=== PATIENT | female | born 1970 | race Caucasian/White ===

== ENCOUNTER → 2017-08-21 13:32 | Outpatient (CLI) | payer MEDICARE, SELFPAY ==
[2017-08-21 15:53] LABS: International Normalized Ratio 1.7; Prothrombin Time (Protime)PT. 18.9 SECONDS (11.7-14.9)
== END ==
PROVIDERS: Family Provider Internal Medicine; PCP Internal Medicine; Visit Provider Internal Medicine
DX: I82.409 Acute embolism and thrombosis of unspecified deep veins of unspecified lower extremity (principal)
CPT/HCPCS: 36415; 85610

== ENCOUNTER 2018-02-11 00:02 | Observation (INO) | payer MEDICARE, SELFPAY ==
[2018-02-11] VITALS (12 sets, daily range): BP systolic 106–139; BP diastolic 54–73; PULSE 71–96; RESP 16–18; TEMP 36.1–37.3; O2SAT 92–100; BMI 30.6; BMI 30.2; BMI 30.3
--- NOTE | 2018-02-11 00:41 | CT_ITS ---
STUDY: CT ABDOMEN AND PELVIS WITHOUT CONTRAST REASON FOR EXAM: Female, 47 years old. Upper abdominal pain. RADIATION DOSAGE (If Supplied By Facility): CTDIvol = ( 9.45 ) mGy, DLP = ( 474.72 ) mGycm TECHNIQUE: Transaxial images were obtained from the dome of the diaphragm to the symphysis pubis without oral contrast, and without intravenous contrast. Sagittal and coronal images were reconstructed. Individualized dose optimization techniques were used for this CT. COMPARISON: 03/22/2008. FINDINGS: The visualized lung bases are unremarkable. The visualized portions of the heart are within normal limits. There is mild diffuse fatty infiltration of the liver. Normal gallbladder and extrahepatic biliary system. Normal spleen. Normal pancreas. Normal bilateral adrenal glands. Normal right kidney. Normal left kidney. Normal visualized stomach. Normal small intestine. Normal colon. There is a tubular, thick-walled appendix (>7mm), consistent with acute appendicitis. There is mild periappendiceal stranding. There is mild atherosclerotic calcification of the abdominal aorta with elongation and tortuosity, but without a demonstrated aneurysm. Normal inferior vena cava. Normal retroperitoneum. Normal urinary bladder. There is absence of the uterus consistent with a prior hysterectomy. There is a very small umbilical hernia containing fat. There is straightening of the lumbar spine. There is minimal retrolisthesis of L2 over L3. CT/Abdomen/Pelvis without Cont IMPRESSION: Thickening of the appendix with mild periappendiceal stranding suggestive of acute appendicitis. N.B. : The above information has been verbally conveyed by José Martin MD to Dr. Marcella Rolle on 02/11/2018 01:40:39 (ET). Electronically Signed: José Martin MD at 1:36 EDT Tel , Service support , N.B. : The above information has been verbally conveyed by José Martin MD to Dr. Marcella Rolle on 02/11/2018 01:40:39 (ET).
--- NOTE | 2018-02-11 00:41 | EKG12_ITS ---
Test Reason : ABD PAIN Blood Pressure : / mmHG Vent. Rate : 073 BPM Atrial Rate : 073 BPM P-R Int : 164 ms QRS Dur : 088 ms QT Int : 386 ms P-R-T Axes : 051 018 024 degrees QTc Int : 425 ms Normal sinus rhythm Normal ECG Confirmed by FANTASMA CLARK, BAUTISTA ([id number]), video editor PHUONG DIANA ([id number] on 02/13/2018 4:29:11 PM Referred By: LANG Confirmed By:BAUTISTA MEEK MD
--- NOTE | 2018-02-11 00:42 | ED.VISSUMM ---
- ER Visit Summary Date of Service: 02/11/18 Chief Complaint: [Abdominal pain] History of Present Illness: The patient is a 47 F [who presents the emergency department with abdominal pain. It started 1 hour after dinner tonight. She had a veggie burger fried potatoes and cookies. She has some nausea but no vomiting. Bowel movements have been normal. Urination has been normal. It started out as a feeling of fullness in the epigastric area and radiates to the right side. She has a history of laparoscopies and complete hysterectomy. She still has her appendix and her gallbladder. No fevers or chills. She has never had similar pain in the past she is diabetic] Physical Examination: [] WN WD NAD PERRL EOMI MMM NECK supple and nontender, no masses RRR no murmur rub or gallop, no peripheral edema, symmetric radial pulses CTAB no respiratory distress ABDOMEN is soft negative Porras sign positive tenderness over McBurney's point with negative so as Rovsing sign, normal bowel sounds, no distension, no rebound or guarding SKIN is warm and dry no rashes Alert and Oriented x3, CN II-XII in tact, no motor or sensory deficits, gait normal No lymphadenopathy Test Results: [] Emergency Department Course and Treatment: [Patient denied wanting anything for pain. Screening labs were obtained and showed a leukocytosis at 15.4. She had 5-10 white blood cells in her urine. CT of the abdomen and pelvis was consistent with acute appendicitis. I spoke with Dr. Hess. She was given Cipro and Flagyl for antibiotics in the emergency department. He will begin to do surgery at 430.] Treatment Plan: [] Disposition: [Operating room] Impression: [aCute appendicitis] This note was generated with [employer] dictation software. It may contain incorrect words, spelling, and punctuation that were not noted in review of the chart prior to signing ED Disposition - Plan for ED Patient: Chief Complaint: Abd Pain Referrals: Charo Rutledge MD [Primary Care Provider] -
[2018-02-11 00:49] LABS: Mucous, Urine 0 SEEN /hpf (<or=2+); Red Blood Cells-Urine 0 SEEN /hpf (0-5)
[2018-02-11] MEDS: Ondansetron 4 MG/2 ML Vial IV ×2 (00:49→09:37)
[2018-02-11 00:53] LABS: Absolute Lymphocyte Count 4.25 X10^3/ul (0.83-4.51); Absolute Neutrophil Count 9.9 X10^3/uL (2.0-7.7); Basophil# 0.04 X10^3/uL; Basophil% 0.3 % (0-1); Eosinophil# 0.29 X10^3/uL; Eosinophils% 1.9 % (0-5); Hematocrit 35.6 % (37-47); Hemoglobin 12.2 g/dl (12.0-15.0); Lymphocyte # 4.25 X10^3/ul (4.0); Lymphocyte % 27.7 % (19-41); Mean Corp Hgb Conc 34.3 g/gl (32-36); Mean Corpuscular Hgb 31.4 pg (27.0-32.0); Mean Corpuscular Volume 91.5 fL (81-99); Mean Platelet Vol. 10.2 fl (6.2-12.0); Monocyte# 0.84 X10^3/uL; Monocyte% 5.5 % (0-10); Neutrophil # 9.89 X10^3/uL (2.7-7.7); Neutrophil % 64.3 % (47-70); Platelet Count 388 K/mm3 (150-450); RBC Distribution Width CV 12.1 % (11.6-14.6); RBC Distribution Width SD 39.6 fl (35.1-43.9); Red Blood Count 3.89 M/mm3 (4.2-5.4); White Blood Count 15.4 K/mm3 (4.4-11.0)
[2018-02-11 00:55] LABS: POSITIVE COUNT NO; POSITIVE DIFFERENTIAL NO; POSITIVE MORPHOLOGY NO
[2018-02-11 01:17] LABS: AST(SGOT) 29 U/L (15-37); Alanine Aminotransfer ALT/SGPT 30 U/L (13-56); Albumin, Serum 3.8 g/dL (3.2-5.0); Alkaline Phosphatase 91 U/L (45-117); Anion Gap 8 (5-15); BUN 9 mg/dL (7-18); BUN/Creat Ratio 13.6 RATIO (10-20); Calcium,Total 9.1 mg/dL (8.5-10.1); Chloride 104 mmol/L (98-107); Creatinine, Serum 0.66 mg/dL (0.55-1.02); EST Glomerular Filtration Rate 101 mL/min (>60); Est Glom Filt Rate - Afr Amer 123 mL/min (>60); Globulin 3.9 g/dL (2.2-4.2); Glucose 141 mg/dL (74-106); Lipase 239 U/L (73-393); Potassium 4.1 mmol/L (3.5-5.1); Protein, Total 7.7 g/dL (6.4-8.2); Sodium Level 140 mmol/L (136-145)
[2018-02-11 01:20] LABS: Color, Urine Yellow (Yellow); Glucose, Dipstick Normal (Normal); Ketone-Dipstick Negative (Negative); Leukocyte Esterase-Dipstick 500 /ul (Negative); Nitrite-Dipstick Negative (Negative); Occult Blood-Urine Negative /ul (Negative); Protein-Dipstick Negative (Negative); Urine Bilirubin Dipstick Negative (Negative); Urine Clarity Clear (Clear); Urine Urobilinogen Normal (Normal)
[2018-02-11 01:31] LABS: Bacteria RARE /hpf (None Seen); Squamous Epithelial Cells - UA 0-5 SEEN /hpf (5-10); White Blood Cells 5-10 SEEN /hpf (0-5)
[2018-02-11] MEDS: Ciprofloxacin 400 MG/200 ML BAG 200 MG IV ×3 (02:25→21:02)
--- NOTE | 2018-02-11 04:46 | HP.PCM_ITS ---
Problem List (1) Diabetes Status: Acute (2) DVT (deep venous thrombosis) Status: Acute History of Present Illness Date of Admission: 02/11/18 The patient is a 47 year old F with epigastric and RLQ pain that began at 7pm last night. SHe noted nausea but no vomiting. She presented to the [facility] ER. She was found to have an elevated WBC count of 15K. CT scan was interpreted as early appendicitis She had a LLE DVT below the knee in June. She stopped her coumadin 2 weeks prior. Past Medical History Allergies aspirin Allergy (Verified 02/11/18 00:11) Hives guaifenesin [From Entex LA] Allergy (Verified 02/11/18 00:11) Other minocycline Allergy (Verified 02/11/18 00:11) Hives Penicillins Allergy (Verified 02/11/18 00:11) Hives phenylephrine [From Entex LA] Allergy (Verified 02/11/18 00:11) Other phenylpropanolamine [From Entex LA] Allergy (Verified 02/11/18 00:11) Other sulfamethoxazole [From Bactrim] Allergy (Verified 02/11/18 00:11) Hives trimethoprim [From Bactrim] Allergy (Verified 02/11/18 00:11) Hives IV DYE Allergy (Uncoded 02/11/18 00:11) Anaphylaxis Home Medications: Ambulatory Orders Medication Instructions Recorded Atenolol [Tenormin] 25 mg PO DAILY 02/11/18 Carbamazepine 200 mg PO DAILY 02/11/18 Carbamazepine 400 mg PO QHS 02/11/18 Insulin NPH Human Isophane 22 unit SQ DAILY 02/11/18 [Novolin N] Insulin Regular, Human [Novolin R] 12 unit SC TID 02/11/18 Lisinopril [Zestril] 2.5 mg PO DAILY 02/11/18 Pantoprazole Sodium [Protonix] 40 mg PO DAILY 02/11/18 Rosuvastatin Calcium [Crestor] 20 mg PO DAILY 02/11/18 Sertraline HCl [Zoloft] 100 mg PO DAILY 02/11/18 Surgical History: hysterectomy, - - bilateral oopherectomy Smoking Status: Former smoker Review of Systems Constitutional: Reports: Anorexia. Denies: Chills, Fever, Weight Change HEENT: Denies: Head Aches, Sinus Congestion, Sinus Drainage Cardiovascular: Denies: Chest Pain, Palpitations Respiratory: Denies: Cough, Shortness of breath at rest, Sputum production Gastrointestinal: Reports: Abdominal Pain, Nausea. Denies: Vomiting Genitourinary: Denies: Dysuria Musculoskeletal: Denies: Joint Pain, Joint Tenderness Skin: Denies: Rash, Wounds Neurological: Denies: Numbness, Tingling, Focal weakness Psychiatric: Denies: Anxiety, Depression, Homicidal Ideations, Suicidal Ideations Hematologic/ Lymphatic: Reports: Hx of blood clot - left leg. Denies: Easy Bruising, Easy Bleeding VTE Information - Inpt Only VTE Present on Admission: Yes - prior left dvt VTE Mechan Device Prophylaxis: SCD's - right leg only Patient Problems: Active and Suspected Problems Diabetes (Acute) DVT (deep venous thrombosis) (Acute) - Physical Exam General: Alert, Oriented x3, Cooperative HEENT: Atraumatic, PERRLA, EOMI, Normocephalic Neck: Supple, No JVD, Negative Carotid Bruits Lungs: Clear to auscultation, Normal air movement Cardiovascular: Regular rate, No murmurs Abdomen: Bowel Sounds Present, Soft, Tender - RLQ Extremities: No edema, Capillary Refill Less than 3 Seconds Skin: No rashes, No breakdown Musculoskeletal: No Tenderness to Palpation of Joints or Extremities Neurological: Cranial nerves II-XII grossly intact Psych/Mental Status: Normal Affect, Appropriate Vital Signs Temp Pulse Resp BP Pulse Ox 98.0 F 71 16 139/73 H 94 02/11/18 02:32 02/11/18 02:32 02/11/18 02:32 02/11/18 02:32 02/11/18 02:32 Oxygen Delivery Method Room Air Weight: 83.5 kg Body Mass Index (BMI) 30.6 Laboratory Tests Past 24 Hrs 02/11/18 02/11/18 02/11/18 00:30 00:30 00:30 WBC 15.4 H RBC 3.89 L Hgb 12.2 Hct 35.6 L MCV 91.5 MCH 31.4 MCHC 34.3 RDW 12.1 RDW Differential 39.6 Plt Count 388 MPV 10.2 Immature Gran % (Auto) 0.300 Neut % (Auto) 64.3 Lymph % (Auto) 27.7 [place] % (Auto) 5.5 Eos % (Auto) 1.9 Baso % (Auto) 0.3 Absolute Neuts (auto) 9.9 H Absolute Lymphs (auto) 4.25 Total Counted Not Reportable Sodium 140 Potassium 4.1 Chloride 104 Carbon Dioxide 28.0 Anion Gap 8 BUN 9 Creatinine 0.66 Estim Creat Clear Calc 93.80 Est GFR (MDRD) Af Amer 123 Est GFR (MDRD) Non-Af 101 BUN/Creatinine Ratio 13.6 Glucose 141 H Calcium 9.1 Total Bilirubin 0.20 AST 29 ALT 30 Alkaline Phosphatase 91 Total Protein 7.7 Albumin 3.8 Globulin 3.9 Albumin/Globulin Ratio 1.0 Lipase 239 Urine Color Yellow Urine Clarity Clear Urine pH 5.0 Ur Specific [place] 1.010 Urine Protein Negative Urine Glucose (UA) Normal Urine Ketones Negative Urine Occult Blood Negative Urine Nitrite Negative Urine Bilirubin Negative Urine Urobilinogen Normal Ur Leukocyte Esterase 500 H Urine RBC 0 SEEN Urine WBC 5-10 SEEN Ur Squamous Epith Cells 0-5 SEEN Urine Bacteria RARE Urine Mucus 0 SEEN Assessment/Plan All Active Problems Diabetes (Acute) DVT (deep venous thrombosis) (Acute) appendicitis I plan to perform a laparoscopic appendectomy. The patient understands the risks, benefits and possible complications and consents to the procedure. SHe has a penicillin allergy. SHe was given cipro and flagyl. SHe had a history of a LLE DVT. She stopped her coumadin [address] We will place a right LE SCD.
--- NOTE | 2018-02-11 05:00 | APP_PTH ---
PATIENT: AGUILAR FERGUSON LOC: MS3 U#:[id number] AGE/SX: 47/F ROOM: MS313 RE02/12/[address]: Dr. Reed Caban MD : 1970 BED: 1 DIS: 02/13/2018 SPEC #: [id number] RECD: 02/11/18 07:15 STATUS: NATALIA REQ #: [id number] JANINA: 02/11/18 05:[address]: Reed Caban DEPT: SURGICAL PATHOLOGY RECD BY: Efrem Churchill ENTERED: 02/11/18 11:00 SP TYPE: APPENDIX OTHR DR: Dr. Charo Rutledge MD Tissues: Appendix, NOS Procedures: Surgery Specimen Level III HEADER OPERATION: Laparoscopic, appendectomy PRE-OP DIAGNOSIS: Acute appendicitis TISSUE SUBMITTED: Appendix MICROSCOPIC DIAGNOSIS Appendix: Acute appendicitis with focal area of rupture and periappendicitis. SJ:jojo 6/27/18 MICROSCOPIC DESCRIPTION Slides are reviewed. GROSS DESCRIPTION Received in fixative is one container labeled with the patient's name and designated appendix. The specimen consists of appendix measuring 5 cm in length and up to 0.8 cm in diameter. The attached periappendiceal adipose tissue measures up to 2.5 cm in thickness. The serosa is congested and focally covered with bradshaw purulent exudate. Focal area is suspicious for perforation noted in the middle portion. Lumen does not contain any fecalith. Broomcorn Thresher sections are submitted in 1 cassette. JOSE ANTONIO:jojo 02/10/18 TC:2 CPT: 76083
[2018-02-11] MEDS: Bupivacaine Mpf 0.5% 30 ML VIAL (06:02)
--- NOTE | 2018-02-11 06:06 | OP.PCM_ITS ---
Problem List (1) Diabetes Status: Acute (2) DVT (deep venous thrombosis) Status: Acute Report of Operation Date of Procedure: 02/11/18 Pre-Operative Diagnosis: acute appendicitis Post-Operative Diagnosis: acute appendicitis Surgery/Procedure Performed:: laparoscopic appendectomy three knife trimmer: None Type of Anesthesia:: General Anesthesiologist: Lars Obando - ASA2E Specimen's removed: appendix Estimated Blood Loss (mL): minimal Fluids Replaced: 1000 Description of Procedure: The patient was brought to the operating suite. Sign in was performed verifying patient, site, procedure, position, and DVT prophylaxis with SCDs. Patient received Cipro 400 mg and Bactrim 500 mg due to a penicillin allergy for presumed appendicitis. Following induction of general anesthetic. The patient?s abdomen was prepped and draped in the usual fashion. Timeout was performed verifying patient, site , position. Local anesthetic was injected below the umbilicus. Incision made and dissection carried down to the umbilical root fascia. 2 stay sutures were placed. Incision made in the fascia, the peritoneum entered under direct visualization. A 10 mm Bowser trocar was inserted and secured with the stay sutures. Pneumoperitoneum to 15 mmHg was insufflated. 2 5mm ports were placed in the standard position. Visual inspection revealed early acute appendicitis without significant intra- abdominal inflammation or pelvic fluid. A window was made between the base the mesoappendix and the base of the appendix transected with the intestinal load Endo RIKC stapler at the base of the cecum. The mesoappendix was transected with a harmonic scalpel. The appendix was placed in an Endobag and removed through the umbilical port site. An 0 PDS [id number] suture was placed around the umbilical port site defect. Pneumoperitoneum was reestablished. The appendiceal area was checked for hemostasis. 5mm ports were removed under direct visualization with no signs of bleeding. Pneumoperitoneum was released. The Bowser trocar was removed. The umbilical fascial suture was secured area did skin was closed with interrupted 4-0 Monocryl subcuticular sutures. Steri-Strips and bandages were applied. The patient was brought to recovery room in stable condition. - Admit VTE Documentation VTE Present on Admission: Yes - LLE VTE Mechan Device Prophylaxis: SCD's VTE Pharm Prophylaxis ordered?: Yes
[2018-02-11 06:41] LABS: Bedside Glucose 186 mg/dL (70-110)
[2018-02-11] MEDS: Lactated Ringers 1,000 ML 100 ML IV ×2 (07:15→21:01)
[2018-02-11] MEDS: Insulin Lispro 100 UNIT/ML INSULN.PEN SC ×2 (09:25→16:27)
[2018-02-11 10:51] LABS: Bedside Glucose 182 mg/dL (70-110)
[2018-02-11] MEDS: Enoxaparin 40 MG/0.4 ML Syringe SC (12:25)
[2018-02-11] MEDS: Atenolol 25 MG Tablet PO (13:22)
[2018-02-11] MEDS: Lisinopril 2.5 MG Tablet PO (13:22)
[2018-02-11] MEDS: carBAMazepine 200 MG Tablet PO (13:22)
[2018-02-11] MEDS: Pantoprazole Sodium 40 MG Tablet PO ×2 (13:23)
[2018-02-11] MEDS: Sertraline 100 MG Tablet PO (13:23)
[2018-02-11 13:51] LABS: Bedside Glucose 142 mg/dL (70-110)
[2018-02-11 16:36] LABS: Bedside Glucose 161 mg/dL (70-110)
--- NOTE | 2018-02-11 16:37 | NURSING ---
Addendum entered by Justa Arcos 02/11/18 16:39: have encouraged pt multiple times this shift to sit up in recliner and to ambulate in room and hallway, but pt has refused due to pain, nausea, etc. informed patient that she will need to sit up in recliner for supper and to ambulate in hallway before 1800. pt verbalized understanding. pt aware of risks of remaining sedentary including pneumonia, ileus, and blood clots. Original Note: SPO2 drops to 88% on room air when pt resting. 2L placed.
[2018-02-11] MEDS: oxyCODONE 5 MG Tablet PO ×2 (17:15→22:27)
[2018-02-11] MEDS: carBAMazepine 200 MG Tablet 400 MG PO (22:27)
[2018-02-11] MEDS: Atorvastatin Calcium 10 MG Tablet PO (22:27)
[2018-02-11 22:36] LABS: Bedside Glucose 154 mg/dL (70-110)
[2018-02-12] MEDS: oxyCODONE 5 MG Tablet PO ×3 (02:27→11:14)
[2018-02-12 02:32] VITALS: BP 131/72; PULSE 84; RESP 16; TEMP 36.9; O2SAT 99
[2018-02-12] MEDS: Insulin Lispro 100 UNIT/ML INSULN.PEN SC ×3 (06:38→17:06)
[2018-02-12 06:46] LABS: Bedside Glucose 167 mg/dL (70-110)
[2018-02-12 07:03] LABS: Absolute Lymphocyte Count 2.56 X10^3/ul (0.83-4.51); Absolute Neutrophil Count 5.2 X10^3/uL (2.0-7.7); Basophil# 0.03 X10^3/uL; Basophil% 0.4 % (0-1); Eosinophil# 0.14 X10^3/uL; Eosinophils% 1.7 % (0-5); Hematocrit 33.2 % (37-47); Hemoglobin 10.8 g/dl (12.0-15.0); Lymphocyte # 2.56 X10^3/ul (4.0); Lymphocyte % 30.4 % (19-41); Mean Corp Hgb Conc 32.5 g/gl (32-36); Mean Corpuscular Hgb 30.6 pg (27.0-32.0); Mean Corpuscular Volume 94.1 fL (81-99); Mean Platelet Vol. 9.6 fl (6.2-12.0); Monocyte% 5.9 % (0-10); Neutrophil # 5.17 X10^3/uL (2.7-7.7); Neutrophil % 61.5 % (47-70); Platelet Count 283 K/mm3 (150-450); RBC Distribution Width CV 12.6 % (11.6-14.6); RBC Distribution Width SD 42.6 fl (35.1-43.9); Red Blood Count 3.53 M/mm3 (4.2-5.4); White Blood Count 8.4 K/mm3 (4.4-11.0)
[2018-02-12 07:04] LABS: POSITIVE COUNT NO; POSITIVE DIFFERENTIAL NO; POSITIVE MORPHOLOGY NO
[2018-02-12 07:09] VITALS: O2SAT 99
[2018-02-12 07:36] LABS: Anion Gap 8 (5-15); BUN 7 mg/dL (7-18); BUN/Creat Ratio 12.4 RATIO (10-20); Calcium,Total 8.3 mg/dL (8.5-10.1); Chloride 105 mmol/L (98-107); Creatinine, Serum 0.56 mg/dL (0.55-1.02); EST Glomerular Filtration Rate 122 mL/min (>60); Est Glom Filt Rate - Afr Amer 147 mL/min (>60); Estimated Creatinine Clearance 110.55 ml/min; Glucose 153 mg/dL (74-106); Potassium 3.6 mmol/L (3.5-5.1); Sodium Level 142 mmol/L (136-145)
[2018-02-12] MEDS: Lisinopril 2.5 MG Tablet PO (09:10)
[2018-02-12] MEDS: Sertraline 100 MG Tablet PO (09:11)
[2018-02-12] MEDS: Atenolol 25 MG Tablet PO (09:11)
[2018-02-12] MEDS: carBAMazepine 200 MG Tablet PO (09:11)
[2018-02-12] MEDS: Pantoprazole Sodium 40 MG Tablet PO (09:11)
[2018-02-12] MEDS: Ciprofloxacin 400 MG/200 ML BAG 200 MG IV ×2 (09:13→22:13)
[2018-02-12] MEDS: Enoxaparin 40 MG/0.4 ML Syringe SC (09:13)
[2018-02-12] MEDS: Lactated Ringers 1,000 ML 100 ML IV ×2 (09:13→22:13)
[2018-02-12 09:15] VITALS: BP 119/63; PULSE 80; RESP 18; TEMP 37.3; O2SAT 94
[2018-02-12] MEDS: Ondansetron 4 MG/2 ML Vial IV ×2 (09:54→21:09)
--- NOTE | 2018-02-12 11:09 | PCM.PN.SRG ---
Patient Problems: Active and Suspected Problems Diabetes (Acute) DVT (deep venous thrombosis) (Acute) Subjective: left sided abdominal pain, poor appetite - Physical Exam General: Alert, Oriented x3, Cooperative Lungs: Clear to auscultation, Normal air movement Cardiovascular: Regular rate, No murmurs Abdomen: Soft, Hypoactive Bowel Sounds, Tender - at incisions Vital Signs Temp Pulse Resp BP Pulse Ox 99.1 F 80 18 119/63 94 02/12/18 09:15 02/12/18 09:15 02/12/18 09:15 02/12/18 09:15 02/12/18 09:15 Oxygen Flow Rate (L/min) 2 Oxygen Delivery Method Room Air Weight: 82.554 kg Body Mass Index (BMI) 30.2 Intake and Output for Last 24 Hours 02/10/18 02/11/18 02/12/18 23:59 23:59 23:59 Intake Total 3170 / 3170 2060 / 2060 Output Total 700 / 700 3150 / 3150 Balance 2470 / 2470 -1090 / -1090 Laboratory Tests Past 24 Hrs 02/12/18 02/12/18 06:50 06:50 WBC 8.4 RBC 3.53 L Hgb 10.8 L Hct 33.2 L MCV 94.1 MCH 30.6 MCHC 32.5 RDW 12.6 RDW Differential 42.6 Plt Count 283 MPV 9.6 Immature Gran % (Auto) 0.100 Neut % (Auto) 61.5 Lymph % (Auto) 30.4 [place] % (Auto) 5.9 Eos % (Auto) 1.7 Baso % (Auto) 0.4 Absolute Neuts (auto) 5.2 Absolute Lymphs (auto) 2.56 Total Counted Not Reportable Sodium 142 Potassium 3.6 Chloride 105 Carbon Dioxide 29.0 Anion Gap 8 BUN 7 Creatinine 0.56 Estim Creat Clear Calc 110.55 Est GFR (MDRD) Af Amer 147 Est GFR (MDRD) Non-Af 122 BUN/Creatinine Ratio 12.4 Glucose 153 H Calcium 8.3 L POC Glucose 02/12/18 02/11/18 02/11/18 06:37 22:27 16:23 POC Glucose 167 H 154 H 161 H 02/11/18 12:30 POC Glucose 142 H Medical Necessity - Tobacco Use Smoking Status: Former smoker Assessment/Plan All Active Problems Diabetes (Acute) DVT (deep venous thrombosis) (Acute) POD # 1 s/p laparoscopic appendectomy for early appendicitis. SHe notes poor appetite, LLQ pain and feels she will not be able to take care of herself at home today. She has a penicillin allergy. SHe was given cipro and flagyl. SHe had a history of a LLE DVT. She stopped her coumadin 2 [address] We will place a right LE SCD and lovenox
[2018-02-12 11:31] LABS: Bedside Glucose 203 mg/dL (70-110)
[2018-02-12 14:00] VITALS: BP 111/58; PULSE 77; RESP 16; TEMP 36.9; O2SAT 93
[2018-02-12] MEDS: proCHLORPERazine 10 MG/2 ML Vial 5 MG IV (14:35)
[2018-02-12] MEDS: Acetaminophen 500 MG Tablet 1000 MG PO (14:35)
[2018-02-12 17:10] LABS: Bedside Glucose 178 mg/dL (70-110)
[2018-02-12 19:47] VITALS: BP 113/57; PULSE 80; RESP 16; TEMP 37; O2SAT 96
[2018-02-12] MEDS: carBAMazepine 200 MG Tablet 400 MG PO (21:04)
[2018-02-12] MEDS: Atorvastatin Calcium 10 MG Tablet PO (21:04)
[2018-02-12] MEDS: 0.9% NaCl Peripheral Flush Adult/Peds IV (21:09)
[2018-02-12 21:21] LABS: Bedside Glucose 147 mg/dL (70-110)
[2018-02-13 01:55] VITALS: BP 125/61; PULSE 79; RESP 16; TEMP 36.8; O2SAT 94
--- NOTE | 2018-02-13 06:42 | DCINST_ITS ---
Discharge Diet: Light diet - advance as tolerated Discharge Activity: May Not Drive - for 3-5 days or while taking narcotic pain meds. May shower in (days): 1 Suture Line Care: Avoid Pulling/Pushing, Avoid Pinching/Bending Additional Dressing/Incision Instructions:: Keep dressing clean and dry. Change or remove dressing in 2 days. Leave steri strips for 1 week. May protect with a gauze bandaid. Medications to take at Discharge Atenolol [Tenormin] 25 mg PO DAILY 02/11/18 Carbamazepine 200 mg PO DAILY 02/11/18 Carbamazepine 400 mg PO QHS 02/11/18 Insulin NPH Human Isophane [Novolin N] 22 unit SQ DAILY 02/11/18 Insulin Regular, Human [Novolin R] 12 unit SC TID 02/11/18 Lisinopril [Zestril] 2.5 mg PO DAILY 02/11/18 Pantoprazole Sodium [Protonix] 40 mg PO DAILY 02/11/18 Rosuvastatin Calcium [Crestor] 20 mg PO DAILY 02/11/18 Sertraline HCl [Zoloft] 100 mg PO DAILY 02/11/18 Enoxaparin [Lovenox] 40 mg SC DAILY@1000 #5 syringe 02/13/18 Hydrocodone/Acetaminophen [[place] 5-325 Tablet] 1 ea PO 4X/DAY PRN PRN 7 Days # 10 tab 02/13/18 Allergies/Adverse Reactions: Allergies aspirin Allergy (Verified 02/11/18 00:11) Hives guaifenesin [From Entex LA] Allergy (Verified 02/11/18 00:11) Other minocycline Allergy (Verified 02/11/18 00:11) Hives Penicillins Allergy (Verified 02/11/18 00:11) Hives phenylephrine [From Entex LA] Allergy (Verified 02/11/18 00:11) Other phenylpropanolamine [From Entex LA] Allergy (Verified 02/11/18 00:11) Other sulfamethoxazole [From Bactrim] Allergy (Verified 02/11/18 00:11) Hives trimethoprim [From Bactrim] Allergy (Verified 02/11/18 00:11) Hives codeine Adverse Reaction (Verified 02/11/18 06:24) Nausea metformin Adverse Reaction (Verified 02/11/18 06:24) Diarrhea morphine Adverse Reaction (Verified 02/11/18 06:24) Nausea IV DYE Allergy (Uncoded 02/11/18 00:11) Anaphylaxis The following prescriptions were given: Enoxaparin [Lovenox] 40 mg SC DAILY@1000 #5 syringe Hydrocodone/Acetaminophen [[place] 5-325 Tablet] 1 ea PO 4X/DAY PRN PRN 7 Days # 10 tab PRN Reason: Pain Primary Care Physician: Charo Rutledge MD [Primary Care Provider] - Please Follow Up With: Reed Caban MD - [phone] When: Call to make a follow up appointment in 1 week.
[2018-02-13] MEDS: Acetaminophen 500 MG Tablet PO (07:05)
[2018-02-13 07:07] VITALS: BP 125/60; PULSE 76; RESP 16; TEMP 36.7; O2SAT 93
[2018-02-13 07:10] VITALS: O2SAT 93
[2018-02-13 07:16] LABS: Bedside Glucose 144 mg/dL (70-110)
[2018-02-13] MEDS: Ondansetron 4 MG/2 ML Vial IV (07:23)
[2018-02-13] MEDS: 0.9% NaCl Peripheral Flush Adult/Peds IV (07:23)
[2018-02-13 08:40] VITALS: BP 154/79; PULSE 78; RESP 16; TEMP 36.8; O2SAT 96
[2018-02-13] MEDS: Lisinopril 2.5 MG Tablet PO (08:41)
[2018-02-13] MEDS: Enoxaparin 40 MG/0.4 ML Syringe SC (08:41)
[2018-02-13] MEDS: Pantoprazole Sodium 40 MG Tablet PO (08:41)
[2018-02-13] MEDS: Sertraline 100 MG Tablet PO (08:41)
[2018-02-13] MEDS: carBAMazepine 200 MG Tablet PO (08:41)
[2018-02-13] MEDS: Atenolol 25 MG Tablet PO (08:41)
[2018-02-13] MEDS: Ciprofloxacin 400 MG/200 ML BAG 200 MG IV (09:18)
--- NOTE | 2018-02-13 10:06 | CASEMGMT ---
RN ZULEIMA NOTE: Spoke with pharmacist @ [facility] who stated pt's co-pay for 5 syringes of Lovenox is $15 total. Pt made aware of co-pay and to take script to pharmacy. Sandhya PEARSONN RN CM
--- NOTE | 2018-02-13 22:14 | PCM.DC.SUM ---
Discharge Date and Diagnosis Date of Admission: 02/11/18 Date of Discharge: 02/13/18 - Primary Discharge Diagnosis appendicitis - Secondary Discharge Diagnosis diabetes Hospital Course and Treatment Operations: appendectomy Summary of Care Provided: The patient is a 47 year old F presented with a one-day history of right lower quadrant pain and acute appendicitis. The patient history of diabetes. Her blood sugars were reasonably poorly controlled. She also noted significant pain on postoperative day 1. She had improvement in both areas is able discharged home on postoperative day 2. Discharge Diet: Light diet - advance as tolerated Discharge Activity: May Not Drive - for 3-5 days or while taking narcotic pain meds. May shower in (days): 1 Suture Line Care: Avoid Pulling/Pushing, Avoid Pinching/Bending Additional Dressing/Incision Instructions:: Keep dressing clean and dry. Change or remove dressing in 2 days. Leave steri strips for 1 week. May protect with a gauze bandaid. Home Medications: Medications to take at Discharge Atenolol [Tenormin] 25 mg PO DAILY 02/11/18 Carbamazepine 200 mg PO DAILY 02/11/18 Carbamazepine 400 mg PO QHS 02/11/18 Insulin NPH Human Isophane [Novolin N] 22 unit SQ DAILY 02/11/18 Insulin Regular, Human [Novolin R] 12 unit SC TID 02/11/18 Lisinopril [Zestril] 2.5 mg PO DAILY 02/11/18 Pantoprazole Sodium [Protonix] 40 mg PO DAILY 02/11/18 Rosuvastatin Calcium [Crestor] 20 mg PO DAILY 02/11/18 Sertraline HCl [Zoloft] 100 mg PO DAILY 02/11/18 Enoxaparin [Lovenox] 40 mg SC DAILY@1000 #5 syringe 02/13/18 Hydrocodone/Acetaminophen [Oneco 5-325 Tablet] 1 ea PO 4X/DAY PRN PRN 7 Days #10 tab 02/13/18 Following Prescrptions Were Given to Patient: Enoxaparin [Lovenox] 40 mg SC DAILY@1000 #5 syringe Hydrocodone/Acetaminophen [Oneco 5-325 Tablet] 1 ea PO 4X/DAY PRN PRN 7 Days #10 tab PRN Reason: Pain Primary Care Physician: Charo Rutledge MD [Primary Care Provider] - Please Follow Up With: Reed Caban MD - [phone] When: Call to make a follow up appointment in 1 week. Medical Necessity - Tobacco Use Smoking Status: Former smoker Meaningful Use Info Meaningful Use Diagnoses (Choose all that apply): None applicable
== END 2018-02-13 11:10 | disposition home or self-care (01) ==
LOC: ED 01:11 → SDC 02:22 → MS3 02:22 → SDC 02-12 15:47
PROVIDERS: Admitting Provider Surgery; Emergency Provider Emergency Medicine; Family Provider Internal Medicine; PCP Internal Medicine; Visit Provider Surgery
PROC: 0DTJ4ZZ Resection of Appendix, Percutaneous Endoscopic Approach (ICD-10-PCS; CPT 44970; principal; 2018-02-11 05:00)
DX: K35.2 Acute appendicitis with generalized peritonitis (principal); Z86.718 Personal history of other venous thrombosis and embolism; E11.9 Type 2 diabetes mellitus without complications; Z87.891 Personal history of nicotine dependence; Z79.899 Other long term (current) drug therapy; Z79.4 Long term (current) use of insulin
CPT/HCPCS: 44970; 36415; 74176; 80048; 80053; 81001; 82962; 83690; 85025; 88304; 93005; 94762; 96361; 96365; 96366; 96368; 96372; 96375; 96376; 97802; 99218; 99285; J7030; J7120; A4216; G0378; J0744; J2405

== ENCOUNTER → 2018-07-05 10:59 | Outpatient (CLI) | payer MEDICARE, SELFPAY ==
[2018-07-05 11:48] LABS: Hematocrit 38.1 % (37-47); Hemoglobin 12.7 g/dl (12.0-15.0); Mean Corp Hgb Conc 33.3 g/gl (32-36); Mean Corpuscular Hgb 30.8 pg (27.0-32.0); Mean Corpuscular Volume 92.5 fL (81-99); Mean Platelet Vol. 10.2 fl (6.2-12.0); Platelet Count 366 K/mm3 (150-450); RBC Distribution Width SD 39.8 fl (35.1-43.9); Red Blood Count 4.12 M/mm3 (4.2-5.4); White Blood Count 8.4 K/mm3 (4.4-11.0)
[2018-07-05 11:49] LABS: Scan Indicated on CBC? Y/N NO
[2018-07-05 12:05] LABS: Microalbumin,Random Urine 5.2 mg/L (NO RANGE EST.); Microalbumin:Creatinine Ratio 5.2 mg/g CRE (<30 mg/g CRE)
[2018-07-05 12:09] LABS: Hemoglobin A1c 8.7 % (4.2-6.3)
[2018-07-05 12:21] LABS: Carbamazepine (Tegretol) 9.9 ug/mL (4.0-12.0)
[2018-07-05 12:22] LABS: ALB/GLOB Ratio 1.1 RATIO (0.9-2.4); AST(SGOT) 23 U/L (15-37); Alanine Aminotransfer ALT/SGPT 29 U/L (13-56); Albumin, Serum 3.8 g/dL (3.2-5.0); Alkaline Phosphatase 104 U/L (45-117); Anion Gap 11 (5-15); BUN 11 mg/dL (7-18); BUN/Creat Ratio 15.6 RATIO (10-20); Calcium,Total 8.7 mg/dL (8.5-10.1); Chloride 105 mmol/L (98-107); EST Glomerular Filtration Rate 94 mL/min (>60); Est Glom Filt Rate - Afr Amer 114 mL/min (>60); Globulin 3.6 g/dL (2.2-4.2); Glucose 165 mg/dL (74-106); Magnesium 1.8 mg/dL (1.6-2.6); Protein, Total 7.4 g/dL (6.4-8.2); Sodium Level 142 mmol/L (136-145)
[2018-07-05 12:54] LABS: Vitamin D,25 Hydroxy 63.1 ng/mL (29.95-100.01)
== END ==
PROVIDERS: Family Provider Internal Medicine; PCP Internal Medicine; Referring Provider Internal Medicine; Visit Provider Internal Medicine
DX: E55.9 Vitamin D deficiency, unspecified (principal); E78.2 Mixed hyperlipidemia; I10 Essential (primary) hypertension; E11.9 Type 2 diabetes mellitus without complications; Z79.4 Long term (current) use of insulin; Z79.899 Other long term (current) drug therapy
CPT/HCPCS: 36415; 80053; 80156; 82043; 82306; 82570; 83036; 83735; 85027

== ENCOUNTER → 2018-11-28 13:22 | Outpatient (CLI) | payer MEDICARE, SELFPAY ==
[2018-02-11 07:10] VITALS: BMI 30.2
[2018-11-28 16:16] LABS: Hematocrit 39.5 % (37-47); Hemoglobin 13.2 g/dl (12.0-15.0); Mean Corp Hgb Conc 33.4 g/gl (32-36); Mean Corpuscular Hgb 30.3 pg (27.0-32.0); Mean Corpuscular Volume 90.8 fL (81-99); Mean Platelet Vol. 10.2 fl (6.2-12.0); Platelet Count 378 K/mm3 (150-450); RBC Distribution Width CV 12.5 % (11.6-14.6); RBC Distribution Width SD 41.6 fl (35.1-43.9); Red Blood Count 4.35 M/mm3 (4.2-5.4); White Blood Count 7.1 K/mm3 (4.4-11.0)
[2018-11-28 16:19] LABS: Scan Indicated on CBC? Y/N NO
[2018-11-28 16:30] LABS: AST(SGOT) 19 U/L (15-37); Alanine Aminotransfer ALT/SGPT 28 U/L (13-56); Albumin, Serum 3.9 g/dL (3.2-5.0); Alkaline Phosphatase 99 U/L (45-117); Anion Gap 8 (5-15); BUN 10 mg/dL (7-18); BUN/Creat Ratio 14.7 RATIO (10-20); Calcium,Total 9.1 mg/dL (8.5-10.1); Chloride 105 mmol/L (98-107); Cholesterol 306 mg/dL (200); Creatinine, Serum 0.68 mg/dL (0.55-1.02); EST Glomerular Filtration Rate 98 mL/min (>60); Est Glom Filt Rate - Afr Amer 118 mL/min (>60); Globulin 3.9 g/dL (2.2-4.2); Glucose 155 mg/dL (74-106); High Density Lipoprotein 58 mg/dL; Protein, Total 7.8 g/dL (6.4-8.2); Sodium Level 141 mmol/L (136-145); Triglycerides 236 mg/dL; Very Low Density Lipoprotein 47 mg/dL (5-40)
[2018-11-28 16:56] LABS: Vitamin B12 579 pg/mL (211-911); Vitamin D,25 Hydroxy 48.2 ng/mL (29.95-100.01)
[2018-11-28 17:05] LABS: Carbamazepine (Tegretol) 9.8 ug/mL (4.0-12.0)
[2018-11-28 20:19] LABS: Hemoglobin A1c 8.2 % (4.2-6.3)
== END ==
PROVIDERS: Family Provider Internal Medicine; PCP Internal Medicine; Referring Provider Internal Medicine; Visit Provider Internal Medicine
DX: E55.9 Vitamin D deficiency, unspecified (principal); R53.83 Other fatigue; Z79.899 Other long term (current) drug therapy
CPT/HCPCS: 36415; 80053; 80061; 80156; 82306; 82607; 83036; 85027

== ENCOUNTER → 2020-05-27 09:45 | Outpatient (CLI) | payer MEDICARE, SELFPAY | PROVIDERS: PCP Internal Medicine; Referring Provider Family Medicine; Visit Provider Family Medicine | DX: J01.90 Acute sinusitis, unspecified (principal) | CPT/HCPCS: 87635; C9803; U0003 ==

== ENCOUNTER → 2020-10-13 09:40 | Outpatient (CLI) | payer MEDICARE, SELFPAY ==
[2018-02-11 07:10] VITALS: BMI 30.2
[2020-10-13 12:17] LABS: Absolute Lymphocyte Count 2.69 X10^3/uL (0.83-4.51); Absolute Neutrophil Count 5.3 X10^3/uL (2.0-7.7); Basophil# 0.05 X10^3/uL; Basophil% 0.6 % (0-1); Eosinophil# 0.08 X10^3/uL; Eosinophils% 0.9 % (0-5); Hematocrit 38.8 % (37-47); Hemoglobin 12.6 g/dL (12.0-15.0); Lymphocyte # 2.69 X10^3/ul (4.0); Lymphocyte % 31.5 % (19-41); Mean Corp Hgb Conc 32.5 g/dL (32-36); Mean Corpuscular Hgb 29.9 pg (27.0-32.0); Mean Corpuscular Volume 91.9 fL (81-99); Mean Platelet Vol. 10.2 fl (6.2-12.0); Monocyte# 0.42 X10^3/uL; Monocyte% 4.9 % (0-10); NRBC Flagged by Analyzer 0 % (0-5); Neutrophil # 5.28 X10^3/uL (2.7-7.7); Neutrophil % 61.9 % (47-70); Platelet Count 377 K/mm3 (150-450); RBC Distribution Width SD 40.6 fl (35.1-43.9); Red Blood Count 4.22 M/mm3 (4.2-5.4); White Blood Count 8.5 K/mm3 (4.4-11.0)
[2020-10-13 12:40] LABS: Microalbumin,Random Urine 5.1 mg/L (NO RANGE EST.); Microalbumin:Creatinine Ratio 6.9 mg/g CRE (<30 mg/g CRE)
[2020-10-13 12:44] LABS: AST(SGOT) 16 U/L (15-37); Alanine Aminotransfer ALT/SGPT 28 U/L (13-56); Albumin, Serum 3.8 g/dL (3.2-5.0); Alkaline Phosphatase 101 U/L (45-117); Anion Gap 9 (5-15); BUN 10 mg/dL (7-18); BUN/Creat Ratio 15.3 RATIO (10-20); Calcium,Total 8.7 mg/dL (8.5-10.1); Chloride 106 mmol/L (98-107); Cholesterol 240 mg/dL (200); Creatinine, Serum 0.65 mg/dL (0.55-1.02); EST Glomerular Filtration Rate 102 mL/min (>60); Est Glom Filt Rate - Afr Amer 123 mL/min (>60); Globulin 3.8 g/dL (2.2-4.2); Glucose 103 mg/dL (74-106); High Density Lipoprotein 56 mg/dL; Protein, Total 7.6 g/dL (6.4-8.2); Sodium Level 140 mmol/L (136-145); Triglycerides 187 mg/dL; Very Low Density Lipoprotein 37 mg/dL (5-40)
[2020-10-13 12:52] LABS: Hemoglobin A1c 7.1 % (3.8-5.6)
== END ==
PROVIDERS: PCP Internal Medicine; Referring Provider Clinical Nurse Specialist; Visit Provider Clinical Nurse Specialist
DX: E11.9 Type 2 diabetes mellitus without complications (principal); F41.1 Generalized anxiety disorder; I10 Essential (primary) hypertension; Z79.4 Long term (current) use of insulin
CPT/HCPCS: 36415; 80053; 80061; 82043; 82570; 83036; 85025